=== PATIENT | female | born 1960 | race Caucasian/White ===

== ENCOUNTER → 2022-04-09 | Outpatient (CLI) | payer OTHER ==
--- NOTE | 2022-04-09 09:20 | Diagnostic Imaging Report ---
EXAMINATION: Right finger radiograph EXAM DATE: 04/09/2022 9:06 AM COMPARISON: None available. HISTORY: Right finger pain after injury TECHNIQUE: 3 views FINDINGS: There are linear lucencies through the distal 3rd and 4th phalanges. The joint spaces are normal. There is mild soft tissue swelling around the right 3rd digit. No suspicious radiopaque foreign body. IMPRESSION: 1. Linear lucency through the distal aspect of the right 3rd digit distal phalanx. A similar appearance is seen within the 4th digit which may represent normal underlying appearance. Given the trauma to this location, nondisplaced fracture would be within the differential. Dictated by: Dictated on workstation # [id number]
== END ==
LOC: RAD FS 08:55
PROVIDERS: ATTEND Nurse Practitioner
DX: S62.662 Nondisplaced fracture of distal phalanx of right middle finger (principal); X58.XXXS Exposure to other specified factors, sequela
CPT/HCPCS: 73140